=== PATIENT | male | born 1960 | race Caucasian/White ===

== ENCOUNTER 2024-02-17 11:25 | Day surgery (SDC) | payer OTHER, SELFPAY ==
[2024-02-17] VITALS (15 sets, daily range): BP systolic 99–130; BP diastolic 51–85; PULSE 42–65; TEMP 36.2; O2SAT 93–100; BMI 27.4
--- NOTE | 2024-02-17 11:34 | XR_ITS ---
The [address] [address] Patient Name: JACOB LOVELACE MRN: [id number] date: 1960 Sex: M Assigned Patient Location: [facility] Current Patient Location: Accession/Order Number: [id number] Exam Date: 02/17/2024 11:40 Report Date: 02/19/2024 05:00 At the request of: TRINA UP Procedure: XR abdomen 1V EXAMINATION: XR abdomen 1V HISTORY: kidney stones COMPARISON: No relevant comparison available. FINDINGS: KIDNEY/URETER - RIGHT: No visible renal or ureteral calcifications. KIDNEY/URETER - LEFT: No visible renal or ureteral calcifications. PELVIS: No appreciable ureteral stones. A few tiny pelvic calcifications suspected to represent phleboliths. BOWEL: No abnormal dilation or deviation. BONES: No acute abnormality. OTHER: Negative. No abnormal gaseous collections. XR/XR abdomen 1V IMPRESSION: 1. No appreciable urinary tract calculi. Evaluation is limited by dense overlying bowel content. Electronically authenticated by: JORGE BRAGG Date: 02/19/2024 05:00
--- NOTE | 2024-02-17 11:34 | ECG_ITS ---
The [facility] Test Date: 2024-02-17 Pat Name: JACOB LOVELACE Department: Room: - Gender: Male Supervisor Grounds: : 1960 Requested By: TRINA UP Order Number: [id number] Reading MD: [place] Measurements Intervals [place] Rate: 53 P: 70 WV: 164 QRS: 73 QRSD: 90 T: 54 QT: 417 QTc: 395 Interpretive Statements SINUS BRADYCARDIA No previous ECG available for comparison Electronically Signed On 02-18-2024 8:55:06 EST by [place]
[2024-02-17 12:01] LABS: INR 1.03; Partial Thromboplastin Time 29.1 sec (22.3-36.2); Prothrombin Time 10.9 sec (9.0-11.6)
[2024-02-17] MEDS: LACTATED RINGER'S SOLUTION 1,000 ML 50 ML IV (12:54)
[2024-02-17] MEDS: CEFAZOLIN SODIUM 2 GM/50 ML D5W PREMIX IV (13:32)
--- NOTE | 2024-02-17 14:36 | PM.URSON ---
Urology Surgery Operative Note Operative Note Procedure Date: 02/17/24 Time Out Performed: yes Pre-op Diagnosis: Right UPJ calculus Post-op Diagnosis: same as pre-op Procedures performed: 1. Right ESWL. 2. Cystoscopy. 3. Right ureteral catheterization Anesthesia: General-LMA Primary Surgeon: Abdirahman Luevano Complications: None Estimated blood loss (mL): 5 Findings: Large right UPJ calculus Specimens: None Drains: None Indications for Procedures: This gentleman has a 10 mm right UPJ calculus causing obstruction and pain. He was in the ER a few days ago. He now presents for right ESWL and possible stent placement and ureteroscopic laser lithotripsy. He has signed an informed consent after risks were explained. Some of these risks include bleeding, perinephric hematoma, infection and anesthesia to name a few. Detailed description of Procedure: The patient was brought to the Operating Room and placed on Siemens electromagnetic lithotripsy treatment table in the supine position. SCDs were placed on their lower extremities and turned on and functioning during the entire case. Timeout was done by all parties in the room. We all agreed upon the patient's identification and the planned procedures for this patient. General Anesthesia was then administered via LMA. Treatment head was then brought to the patient's correct side. While using flourscopy the stone was identified and lined up into the crosshairs. We then began applying shocks to the right UPJ calculus. We started at a power level of 2.0 and increased to a maximum power level of 3.5. Intermittent fluoroscopy showed that the stone began fragmenting at about 1100 shocks. We watched it continue fragment until we applied 3000 shocks. Our last fluoroscopic image revealed we had total fragmentation. There were a few tiny flecks of stone up in the renal pelvis upon completion. The procedure was then terminated. Because the patient was obstructed prior to the procedure I elected to do cystoscopy and passed the ureteral catheter up the ureter to verify he is open and dislodge any potential small fragments. The patient was then repositioned into the modified dorsolithotomy position. All pressure points were satisfactorily padded. Genitalia were sterilely prepped and draped in the usual fashion. I started by passing a 22 Sinhala Olympus cystoscope per urethra and into the bladder. The anterior urethra was normal. The prostatic urethra showed bilobar obstruction. Panendoscopy in the bladder revealed no evidence of any tumors or stones. I then passed a 6 Sinhala open-ended ureteral catheter through the scope and cannulated the right ureter and then passed the catheter up the ureter. There was no resistance at the site of the stones or previous position. The catheter was then removed. I elected not to place a stent. The bladder was drained of its contents and the scope was then removed. He was then transferred to a [facility] bed and wheeled to PACU in stable condition. He will be discharged to home later today with a prescription for Flomax twice daily for 2 weeks.
--- NOTE | 2024-02-17 15:09 | PC.NURSE ---
RED DIAMETER ON THE RIGHT LOW BACK FROM PROCEDURE. PATIENT STATES IT IS SORE
[2024-02-17] MEDS: KETOROLAC TROMETHAMINE 30 MG/ML VIAL IVP (16:52)
--- NOTE | 2024-02-17 17:58 | PC.NURSE ---
Voided reddish brown urine in urinal; no clots noted
--- NOTE | 2024-02-17 18:00 | PC.NURSE ---
Medicated with Toradol as ordered
== END 2024-02-17 17:25 | disposition home or self-care (01) ==
PROVIDERS: Family Provider Family Medicine; PCP Family Medicine; Visit Provider Urology
PROC: (CPT 873; principal; 2024-02-17 13:00)
DX: N13.2 Hydronephrosis with renal and ureteral calculous obstruction (principal); R31.9 Hematuria, unspecified; N52.9 Male erectile dysfunction, unspecified; N40.1 Benign prostatic hyperplasia with lower urinary tract symptoms; Z87.442 Personal history of urinary calculi; R35.1 Nocturia; R39.15 Urgency of urination; N39.43 Post-void dribbling
CPT/HCPCS: 50590; 52000; 36415; 74018; 85610; 85730; 93005; J0690; J1885; J2250; J2405; J2704; J3010